=== PATIENT | female | born 2000 | race Caucasian/White ===

== ENCOUNTER 2023-12-18 12:07 | Inpatient (IN) | payer MEDICAID, OTHER ==
[2023-12-18] MEDS ORDERED: PROPRANOLOL 20 MG TAB PO PRN (13:16)
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
[2023-12-18 13:54] LABS: Amphetamine Screen,Urine Not Detected (NotDetected); Barbiturate Screen,Urine Not Detected (NotDetected); Benzodiazepines Screen,Urine Not Detected (NotDetected); Cocaine Screen,Urine Not Detected (NotDetected); Methadone Screen, Urine Not Detected (NotDetected); Opiate Screen,Urine Not Detected (NotDetected); Oxycodone Screen, Urine Not Detected (NotDetected); Phencyclidine Screen,Urine Not Detected (NotDetected); Tricyclic Antidepressant,Urine Not Detected (NotDetected); Urn Cannabinoid Scrn Detected (NotDetected)
[2023-12-18] MEDS: LORazepam 1 MG TAB PO STA (14:27)
[2023-12-18] MEDS ORDERED: HALOPERIDOL LACTATE 5 MG/ML 1 ML VIAL IM PRN (20:25)
[2023-12-18] MEDS ORDERED: MAG HYDROX/AL HYDROX/SIMETH 355 ML BOTTLE PO PRN (20:25)
[2023-12-18] MEDS ORDERED: LORazepam 2 MG/ML INJ IM PRN (20:25)
[2023-12-18] MEDS ORDERED: MAGNESIUM HYDROXIDE 2,400 MG/30 ML CUP PO PRN (20:25)
[2023-12-18] MEDS ORDERED: VORTIOXETINE HYDROBROMIDE 20 MG TABLET PO SCH (21:00)
[2023-12-18] MEDS: levETIRAcetam 500 MG TAB PO SCH (21:51)
[2023-12-18] MEDS: LORazepam 1 MG TAB PO PRN (21:52)
[2023-12-18] MEDS: lamoTRIgine 100 MG TAB PO SCH (21:52)
[2023-12-18] MEDS: LORATADINE 10 MG TAB PO SCH (22:02)
[2023-12-18] MEDS: SERTRALINE 100 MG TAB PO SCH (22:02)
--- NOTE | 2023-12-19 01:43 | P.PN ---
Progress Note - Text Progress Note Date: 12/19/23 Attempted to see the patient in the mental health unit. Informed by the mental health unit RN that the patient is currently sedated and is not appropriate for evaluation at this time.
[2023-12-19] MEDS: NICOTINE 21MG/24HR PATCH TRANSDERM SCH (08:24)
[2023-12-19] MEDS: ACETAMINOPHEN TAB 325 MG TAB PO PRN (08:28)
[2023-12-19] MEDS ORDERED: SERTRALINE 100 MG TAB PO SCH (09:00)
[2023-12-19] MEDS ORDERED: LORATADINE 10 MG TAB PO SCH (09:00)
[2023-12-19 11:43] LABS: Basophils # (A) 0.1 k/uL (0-0.2); Basophils % (A) 1 %; Eosinophils # (A) 0.4 k/uL (0-0.7); Eosinophils % (A) 4 %; HCT 44.9 % (34.0-46.0); HGB 13.8 gm/dL (11.4-16.0); Hypochromasia Moderate; Lymphocytes # (A) 1.7 k/uL (1.0-4.8); Lymphocytes % (A) 19 %; MCH 23.8 pg (25.0-35.0); MCHC 30.7 g/dL (31.0-37.0); MCV 77.7 fL (80.0-100.0); Mean Platelet Volume 7.9; Monocytes # (A) 0.5 k/uL (0-1.0); Monocytes % (A) 5 %; Neutrophils # (A) 6.3 k/uL (1.3-7.7); Neutrophils % (A) 68 %; Platelet Count 350 k/uL (150-450); RBC 5.77 m/uL (3.80-5.40); RDW 14.8 % (11.5-15.5); WBC 9.2 k/uL (3.8-10.6)
[2023-12-19 12:02] LABS: ALT 24 U/L (4-34); AST 29 U/L (14-36); African American GFR (CKD) >90 (>60 ml/min/1.73 sqM); Albumin 4.5 g/dL (3.5-5.0); Alkaline Phosphatase 80 U/L (38-126); Anion Gap 7 mmol/L; Blood Urea Nitrogen 6 mg/dL (7-17); Calcium 9.5 mg/dL (8.4-10.2); Carbon Dioxide 27 mmol/L (22-30); Chloride 105 mmol/L (98-107); Glucose 96 mg/dL (74-99); Non-African American GFR(CKD) >90 (>60 ml/min/1.73 sqM); Sodium 139 mmol/L (137-145); Total Bilirubin 0.5 mg/dL (0.2-1.3); Total Protein 7.5 g/dL (6.3-8.2)
[2023-12-19 21:32] LABS: Chol/HDL Ratio 2.82 Ratio; LDL Cholesterol,Calculated 87.7 mg/dL (0.0-131.0)
--- NOTE | 2023-12-20 03:34 | P.CONS ---
History of Present Illness - Reason for Consult Consult date: 12/19/23 - History of Present Illness The patient is a 23-year-old female with a PMH of seizure disorder and bipolar disorder who had presented to the emergency room requesting a psychiatric evaluation. She was admitted to the mental health unit where she was seen and evaluated while accompanied by mental health unit RN. Patient reports that she has been struggling while taking care of her 2 young children alone. Reports feeling overwhelmed and asking her family for help. She reports recreational marijuana and tobacco use. She denied alcohol or additional substance use. She denied any physical complaints at the time of interview. Denied experiencing chest discomfort, shortness of breath, fever, chills, cough, nausea, vomiting, abdominal pain, diarrhea. Review of systems: Pertinent positives and negatives as discussed in HPI, a complete review of systems was performed and all other systems are negative. Physical examination: General: non toxic, no distress, appears at stated age, morbidly obese Derm: no unusual rashes/lesions, no unusual ecchymoses, warm, dry Head: atraumatic, normocephalic, symmetric Eyes: EOMI, no lid lag, anicteric sclera ENT: Nose and ears atraumatic, no thrush, no pharyngeal erythema Neck: trachea midline, supple Mouth: no lip lesion, mucus membranes moist Cardiovascular: S1S2 reg, no murmur, no edema Lungs: CTA bilateral, no rhonchi, no rales , no accessory muscle use Abdominal: soft, nontender to palpation, no guarding Ext: no gross muscle atrophy, no contractures, Neuro: No gross focal neuro deficits noted Psych: Alert, oriented, tearful Assessment: Marijuana abuse Chronic conditions: Seizure disorder Depression with history of bipolar disorder Imaging: None performed Data Review: Laboratory evaluation was reviewed with hemoglobin 13.8, WBC count 9.2, platelet count 350, sodium 139, potassium 5.0, BUN 6, creatinine 0.67, with urine toxicology positive for marijuana Plan: Advised on the importance of cessation from marijuana use Resume patient's home antiepileptics Defer management of depression and bipolar disorder to the primary psychiatry service Thank you for allowing us to participate in the care of this patient. We will follow peripherally. Do not hesitate to contact us with questions. Someone can be reached from the [facility] hospitalist group at all hours of the day at [phone]. Past Medical History Past Medical History: Seizure Disorder Additional Past Medical History / Comment(s): ROXANNA History of Any Multi-Drug Resistant Organisms: None Reported Past Surgical History: Adenoidectomy, Tonsillectomy Past Anesthesia/Blood Transfusion Reactions: No Reported Reaction Past Psychological History: Anxiety, Depression, PTSD Smoking Status: Vaper Past Alcohol Use History: None Reported Past Drug Use History: Marijuana - Past Family History Father Family Medical History: No Reported History Mother Family Medical History: No Reported History Medications and Allergies Home Medications Medication Instructions Recorded Confirmed Type Loratadine 10 mg PO DAILY 12/18/23 12/18/23 History Propranolol [Inderal] 10 mg PO TID PRN 12/18/23 12/18/23 History Sertraline [Zoloft] 100 mg PO DAILY 12/18/23 12/18/23 History Vortioxetine Hydrobromide 20 mg PO HS 12/18/23 12/18/23 History [Trintellix] lamoTRIgine [LaMICtal] 100 mg PO BID 12/18/23 12/18/23 History levETIRAcetam [Keppra] 2,000 mg PO BID 12/18/23 12/18/23 History Allergies Allergy/AdvReac Type Severity Reaction Status Date / Time No Known Allergies Allergy Verified 12/18/23 12:58 Results CBC & Chem 7: 12/19/23 11:02 12/19/23 11:02 Labs: Abnormal Lab Results - Last 24 Hours (Table) 12/19/23 12/19/23 Range/Units 11:02 11:02 RBC 5.77 H (3.80-5.40) m/uL MCV 77.7 L (80.0-100.0) fL MCH 23.8 L (25.0-35.0) pg MCHC 30.7 L (31.0-37.0) g/dL BUN 6 L (7-17) mg/dL
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
[2023-12-20] MEDS: IBUPROFEN 600 MG TAB PO PRN (11:56)
[2023-12-20] MEDS: LORazepam 0.5 MG TAB PO STA (14:48)
[2023-12-20] MEDS: SERTRALINE 100 MG TAB PO SCH (20:18)
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
[2023-12-21] MEDS: VENLAFAXINE HCL 75 MG TAB PO SCH (08:27)
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
[2023-12-21] MEDS: haloperidoL 5 MG TAB PO PRN (23:32)
--- NOTE | 2023-12-22 16:53 | P.PN ---
Progress Note - Text Progress Note Date: 12/22/23 In-Patient Follow-up Chief Complaint: I am tired Subjective: The patient noted doing slightly better in her anger. Her depression was noted to be worse. The patient noted that she did not sleep well. She took her medications. She is not noticing any side effects. The patient has been going to the groups. She has been complaint with treatment recommendations. Leading questions: The patient admitted to Depression and Anxiety. Denied SI or HI. Denied symptoms consistent with psychosis Sleep and Appetite: Impaired Interim History: Behavioral Changes: PRN meds/isolation/restraints/ change in status: The patient received One dose Haldol last night and one dose of Ativan this morning. She received Haldo for being agitated and redirectable. Change in medical condition: No change. Change in medications: No change. Side effects from Medications: None. Objective- MSE: Alert and attentive. Orientation times three. Dressed and Groomed: Appropriately. Pleasant and cooperative. Psychomotor Activity: Normal. Speech: Normal in tone, quality, and underproductive. Mood: depressed and Anxious. Affect: Blunted SI or HI: None. Perceptual disturbance: None. Thought Content: No paranoia or other delusional thinking noted. Thought Process: Normal. Cognition: Intact Judgment and Insight: Good AIMS: Normal. Labs: No renew Lab Diagnosis: No change. Plan and recommendation: Continue current Medications. Increase Effexor to 150 mg daily. Monitor MS and side effects of medications and adjust medications accordingly. Provide supportive psychotherapy. The patient provided psychoeducation. The patient provided Substance abuse counseling. Smoke cessation therapy. The patient to continue attending the caro activities. Medication Consent with explanation of risk/benefits and side effects: Explained and obtained.
[2023-12-23] MEDS: VENLAFAXINE HCL 75 MG TAB PO SCH (08:19)
--- NOTE | 2023-12-23 10:34 | P.PN ---
Progress Note - Text Progress Note Date: 12/23/23 Interval history: Patient was seen laying in her bed today and was directable and agreeable to speak with junior underwriter. Patient claims that she is still feeling depressed, claims that her "BPD" is not under control. She states that she is having any levels of anxiety as well, she was requesting to have her medications changed. States that BuSpar did help her mother and was agreeable to try that today. Claims that she was able to sleep a bit better last night, was fairly focused on her children and being discharged, she has been going to meals only some groups. At this time patient denies any suicidal or homicidal ideations intent or plan. Denies any Auditory or visual hallucinations. Patient denies any side effects from the medications and has been compliant with meds. Mental status exam: General Appearance: Patient appears to be overweight, stated age is alert, directable, and cooperative. Behavior: No agitated behavior. Patient is calm and directable attempts to cooperate. Speech: Patient's speech is fluent and nonpressured. Mood/Affect: Mood is improving mildly, affect is congruent Suicidality/Homicidality: Patient denies having any suicidal or homicidal ideation intent or plan. Perceptions: Patient denies any auditory or visual hallucinations. Though content/process: There is no evidence of any delusional thought content and thought process is linear and goal-directed. Focused on her kids, and discharge. Memory and concentration: AOX3, grossly intact for the purposes of this session Judgment and insight: 4, improving mildly Assessment/Plan: Continue with current diagnosis. Patient continues to meet criteria for inpatient psychiatric admission for symptom stabilization and safety. Patient will be maintained on current psychotropic medication regimen, with the exception of starting BuSpar 5 mg twice daily for anxiety. Monitor for medication compliance and for any psychotropic medication side effects. Will continue to monitor ongoing response to treatment. Encouraged participation in milieu.
[2023-12-23] MEDS: busPIRone HCl 5 MG TAB PO SCH (12:01)
[2023-12-23] MEDS: PRAZOSIN 1 MG CAP PO SCH (20:28)
--- NOTE | 2023-12-24 11:41 | P.PN ---
Progress Note - Text Progress Note Date: 12/24/23 Interval history: Patient was seen laying in her bed today and was directable and agreeable to speak with designer writer. Patient states that she feels a bit better today, claims that she feels more hopeful on her medications. States that she was able to get a bit better sleep last night and less nightmares with the prazosin, she thanked designer writer. She reflected back more on her care and also states that she could benefit a lot from going to outpatient counseling at [facility]. She was fairly focused on her children and being discharged, she has been going to meals only some groups. At this time patient denies any suicidal or homicidal ideations intent or plan. Denies any Auditory or visual hallucinations. Patient denies any side effects from the medications and has been compliant with meds. Mental status exam: General Appearance: Patient appears to be overweight, stated age is alert, directable, and cooperative. Behavior: No agitated behavior. Patient is calm and directable attempts to cooperate. Improving mildly Speech: Patient's speech is fluent and nonpressured. Mood/Affect: Mood is improving mildly, affect is congruent Suicidality/Homicidality: Patient denies having any suicidal or homicidal ideation intent or plan. Perceptions: Patient denies any auditory or visual hallucinations. Though content/process: There is no evidence of any delusional thought content and thought process is linear and goal-directed. Focused on her kids, and discharge. Memory and concentration: AOX3, grossly intact for the purposes of this session Judgment and insight: improving mildly Assessment/Plan: Continue with current diagnosis. Patient continues to meet criteria for inpatient psychiatric admission for symptom stabilization and safety. Patient will be maintained on current psychotropic medication regimen, increased BuSpar 10 mg twice daily for anxiety. Monitor for medication co mpliance and for any psychotropic medication side effects. Will continue to monitor ongoing response to treatment. Encouraged participation in milieu.
[2023-12-24] MEDS: busPIRone HCl 10 MG TAB PO SCH (20:07)
[2023-12-25] MEDS ORDERED: ONDANSETRON 4 MG TAB PO PRN (00:08)
[2023-12-25] MEDS: traZODone HCL 50 MG TAB PO SCH (19:58)
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
[2023-12-26 06:36] VITALS: BP 123/66; PULSE 100; RESP 18; TEMP 98
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
== END 2023-12-26 14:35 | disposition home or self-care (01) | DRG 751 ==
LOC: EC 12:07 → 3MHU 20:13
PROVIDERS: ADMIT Psychiatry & Neurology Psychiatry; ATTEND Psychiatry & Neurology Psychiatry
DX: F33.3 Major depressive disorder, recurrent, severe with psychotic symptoms (principal); F06.4 Anxiety disorder due to known physiological condition; Z91.410 Personal history of adult physical and sexual abuse; G40.909 Epilepsy, unspecified, not intractable, without status epilepticus; R45.851 Suicidal ideations; F12.10 Cannabis abuse, uncomplicated; F17.290 Nicotine dependence, other tobacco product, uncomplicated; F43.10 Post-traumatic stress disorder, unspecified; Z71.51 Drug abuse counseling and surveillance of drug abuser; Z71.89 Other specified counseling; Z79.899 Other long term (current) drug therapy; Z11.52 Encounter for screening for COVID-19; Z28.21 Immunization not carried out because of patient refusal
CPT/HCPCS: 80053; 80061; 80306; 82075; 83036; 84443; 85025; 87636; 99285